=== PATIENT | female | born 1940 | race Caucasian/White ===

== ENCOUNTER 2024-11-23 09:35 | Emergency (ER) | payer MEDICARE, SELFPAY ==
[2024-11-23 09:37] VITALS: BP 120/72
--- NOTE | 2024-11-23 10:47 | ED.GENMED ---
History of Present Illness
General
Chief Complaint: Abdominal Symptoms
Source: patient, records and spouse
Exam Limitations: none
Time Seen by Provider: 11/23/24 10:22
Nursing documentation reviewed up to this point in time: agreed with
History of Present Illness
History of Present Illness:
84-year-old female with past medical history as noted significant for multiple myeloma, A-fib on Pradaxa who presents to the emergency department for evaluation of abdominal discomfort and constipation. Patient reports that 3 weeks ago she had a
fall�was apparently trying to pull open a welt drawer the kitchen and fell backwards. She did not feel she had any serious injuries and so she did not seek care after the fall. Since this accident she has been having abdominal wall pains that she
describes as muscle strain from pulling as well as occasional headache. She reports some soreness in her ribs. She called her primary doctor about pain and was apparently prescribed oxycodone which she took for a few days. This made her very
constipated and so she started using an old prescription for tramadol that was leftover from pelvic fracture a few years ago. She is continue to have abdominal discomfort and has had worsening constipation since then which prompted her to come to
the emergency room today. She says her last bowel movement was 2 days ago. She has had nausea since the accident and occasional vomiting. She reports occasional headache including yesterday denies headache today. Her does note that she
has been mildly confused/foggy recently. She denies any neck pain. 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 She denies any pain in her extremities or numbness or weakness in her extremities.
Past History
Past History
ED Past Medical History: Arrthythmia (AFib), CHF, CVA ([facility] 05/2018), HTN, Hypercholesterolemia and Other (multiple myeloma)
ED Past Surgical History: Appendectomy
Social History
Tobacco: Former smoker
Alcohol: Daily (Wine 1/2 glass white and 1/2 glass red)
Personal:
Living: with family
Employment: Retired
Family History
Family History: Other (reviewed and non-contributory)
Review of Systems
Review of Systems
All Other Systems: ROS reviewed and negative except as documented in HPI and ROS
Constitutional: Denies fever
Respiratory: Denies cough or trouble breathing
Cardiac: Reports chest pain (Sore ribs)
ABD/GI: Reports abdominal pain, nausea, vomiting and constipated
: Denies flank pain
Musculoskeletal: Reports back pain (Chronic); Denies joint pain or neck pain
Neurological: Reports headache; Denies dizzy
Phy Exam
Physical Exam
Physical Exam:
General: Awake, alert, oriented x3; no acute distress
Head: Normocephalic, atraumatic
Eyes: Conjunctiva normal, EOMI, pupils equal round reactive to light bilaterally, mild ptosis on the right which is chronic per patient
Throat: Airway intact, handling secretions
Neck: Trachea midline, no cervical spine tenderness
Back: No signs of trauma the back or flank; she has scoliosis; she has no midline tenderness of the thoracic or lumbar spine and no spinal step-offs
Lungs: Clear to auscultation bilaterally, no wheezing, rales, rhonchi
Heart: Regular rate and rhythm, no murmurs, gallops, or rubs appreciated; mild tenderness in the parasternal region but no crepitus or bruising to the chest wall
Abd: Soft, non distended, mild to moderate tenderness across the upper abdomen as well as in the left lower quadrant but no bruising or peritoneal signs
Neuro: Cranial nerves grossly intact, speech fluid
Skin: Patient has a bruise to the lateral right calf
Extremities: Patient has bruise to the lateral right calf but no significant tenderness in the area, moving both legs through full range of motion without pain; upper extremities are atraumatic with no pain on range of motion; no edema in
extremities, equal pulses in all extremities
Scores
Heart Failure Risk
Heart Failure Risk Score: Not Applicable
Heart Score for Chest Pain Patients
STEMI patient?: Not applicable
Withdrawal Assessment of Alcohol
Withdrawal Assessment Completed?: Not applicable
Course
Orders/Labs/Results
Orders:
Orders
11/23/24 10:30
CT Chest/abd/pel W Iv Cont Urgent
Comment: rib pain s/p fall on Pradaxa
Reason For Exam: abd, n/V, constipation
11/23/24 10:31
Electrocardiogram (*1) Urgent
Reason for Study: QTc Monitoring
EKG- Treatment ONCE
0.9% Sodium Chloride 500 ml [Nss] 500 ml IV BOLUS
Ondansetron Injectable [Zofran] 4 mg IV NOW STA
11/23/24 10:49
CT Cervical Spine W/o Iv Contr Urgent
Comment:
Reason For Exam: fall with head strike
CT Head W/o Iv Contrast Urgent
Comment:
Reason For Exam: fall with head strike on Pradaxa; confused, N/V
11/23/24 10:56
Complete Blood Count/With Diff Urgent
Comprehensive Metabolic Panel Urgent
TSH Reflex To Free T4 Urgent
11/23/24 12:51
Urinalysis Reflex To Culture Urgent
Date Specimen was Collected: 11/23/24
Time Specimen was Collected: 12:49
Urine Microscopic Reflex Cult Urgent
Abnormal Lab Results
11/23/24 11/23/24
10:56 12:51
RBC 2.94 L 10^6/uL
(4.20-5.40)
Hgb 10.0 L g/dL
(12.0-16.0)
Hct 30.7 L %
(37.0-47.0)
MCV 104.4 H fL
(81.0-99.0)
MCH 34.0 H pg
(27.0-31.0)
MCHC 32.6 L g/dL
(33.0-37.0)
Absolute Lymphs (auto) 0.8 L 10^3/uL
(1.2-3.4)
Lymphocytes % 13.8 L %
(20.5-51.1)
Creatinine 0.4 L mg/dL
(0.6-1.0)
Glucose 101 H mg/dl
(70-99)
Total Bilirubin 1.5 H mg/dl
(0.2-1.3)
Alkaline Phosphatase 190 H U/L
(38-126)
Urine Ketones 3+ A
(Negative)
Urine Bacteria (Reflex) Few A
(Negative)
Urine Albumin (Reflex) 2+ A
(Neg - Trace)
11/23/24 10:56
11/23/24 10:56
Vital Signs
Initial and Last Documented VS:
Initial Vital Signs
Temp Pulse Resp BP Pulse Ox
36.9 C 75 16 120/72 98
11/23/24 09:37 11/23/24 09:37 11/23/24 09:37 11/23/24 09:37 11/23/24 09:37
Last Documented Vital Signs
Temp Pulse Resp BP Pulse Ox
36.9 C 70 17 120/72 100
11/23/24 09:37 11/23/24 11:30 11/23/24 11:30 11/23/24 09:37 11/23/24 11:30
MDM/Problems Addressed
Differential Diagnosis Includes:
Abdominal discomfort/constipation: Bowel obstruction, constipation, diverticulitis
Abdominal discomfort/rib soreness/headache/vomiting since fall: Brain bleed (subdural, subarachnoid, etc), rib fracture, flank hemorrhage, abdominal wall strain, vertebral fracture
MDM/Problems Addressed:
84-year-old female presents to the ER for evaluation of constipation, abdominal pain in the setting of recent fall and pain medications as described above. Regarding constipation: Certainly having taken opioids recently high risk for constipation
and this certainly could account for some degree of abdominal discomfort as well. She does have history of abdominal surgeries and with vomiting I think she should be ruled out for obstruction with labs and CT abdomen and pelvis. Regarding her
fall�certainly with fall on blood thinners with reported fogginess, headaches and nausea/vomiting she needs CT head to rule out brain bleed; also check CT of the cervical spine. She says she has had some soreness in the ribs will check CT of the
chest in addition to aforementioned CT abdomen pelvis. Will check labs. Reassess after the above.
Labs reviewed: CBC shows very mild anemia in the setting of known multiple myeloma. CMP shows no clinically significant abnormalities. Urinalysis no infection. EKG shows A-fib which is known. CT head and cervical spine negative for any acute
pathology�old stroke shown on CT known to patient. CT of the chest/abdomen/pelvis showed acute pelvic fracture but no other acute abnormalities. Patient had a bowel movement here and said she feels better after this. We discussed her pelvic
fracture which I think accounts for much of her soreness after the fall. She has had pelvic fracture in the past. She wishes to go home does not feel she needs to stay in the hospital. We spoke about pain control for her pelvic fracture as well
as taking a bowel regimen should she be on any opioids. We spoke about follow-up plan and return precautions. All questions answered.
Chronic conditions affecting care:
A-fib on Pradaxa
*Radiology
Radiology exam reviewed: radiology read reviewed
*Pulse Oximetry
SaO2: 98
Oxygen Mode of Delivery: Room air
Patient hypoxic: no (98%)
*Critical Care Note
Total Time (30-74mins, 75-104mins- exclusive of procedures): Not Applicable
Data Reviewed
Review of Other/Old Records Reveals: Labs and Records
Source: patient and spouse
Patient Management
Escalation/DeEscalation of care consider admission/obs:
Considered admission but patient feels comfortable with discharge
ED Attending Note
-
Portions of this chart may have been created with voice recognition software.� Occasional wrong word or��sound alike� substitutions may have occurred due to the inherent limitations of voice recognition software.
Discharge Plan
Departure
Patient Disposition: Home (Routine Discharge)
Date of Disposition: 11/23/24
Time of Disposition: 13:39
Patient with high blood pressure during this ER visit?: No
Discharge Problem:
Constipation, Pelvic fracture
Instructions: Pelvic fracture, Constipation, Adult (DC)
Prescriptions:
No Action
furosemide 40 MG tablet
40 mg PO DAILY
potassium chloride 10 MEQ capsule, extended release
20 meq PO BID
calcium carbonate [Oyster Shell Calcium 500] 500 MG tablet
500 mg PO DAILY
dexamethasone 4 MG tablet
10 mg PO WE@0800
metoprolol tartrate 50 MG tablet
50 mg PO BID
folic acid 1 MG tablet
1 mg PO DAILY
cyclosporine [Restasis] 10 DROPS dropperette
1 drp BOTH EYES BID
lenalidomide [Revlimid] 5 MG capsule
5 mg PO .SEE COMMENT
Patient Comments:
10/06/18 ss; pt takes daily for 21 days then off for 7 days. Pt took last dose on Monday 10/02 and is due to resume Monday 10/09.
rivaroxaban [Xarelto] 20 MG tablet
20 mg PO QPM
atorvastatin 80 MG tablet
80 mg PO QPM Qty: 30 0RF
tramadol 50 MG tablet
50 mg PO Q6HPRN PRN (Reason: Pain) Qty: 10 0RF
Referrals:
Yesica Canseco MD [Family Provider, Family Practice] - Call in 1-3 days for appt
Activity Restrictions/Additional Instructions:
Thank you for visiting the Emergency Department at [facility].
1. Please schedule a follow up appointment as directed. Call first thing tomorrow morning to make an appointment.
2. If indicated, please take your medications as instructed and indicated on discharge paperwork.
3. If any of your symptoms do not improve, or persist, or become more severe within 6-12 hours, please return to the emergency department for further care.
4. Please return to the emergency department if you develop a headache, neck pain/stiffness, fever greater than 100.4F, chest pain, shortness of breath, persistent nausea, vomiting, slurred speech, difficulty walking, numbness/tingling, weakness,
signs of infection or any other symptoms that are worrisome to you.
Please call [phone] if you have any questions.
Interventions
Interventions:
*Risk Screen - Suicide Last Done: 11/23/24 09:38
*General Assessment Last Done: 11/23/24 11:51
*Neglect/Abuse Screening Last Done: 11/23/24 09:38
*ED COVID-19 Vaccine History Last Done: 11/23/24 11:51
[facility]-Lmksuy-Olbnxqqnfw Assessment Last Done: 11/23/24 11:02
Discharge Date and Time
Print Language: BENGALI
[2024-11-23] MEDS: NSS 500 IV (10:54)
[2024-11-23] MEDS: ZOFRAN 4 MG IV (10:55)
[2024-11-23 11:01] LABS: Hematocrit 30.7 % (37.0-47.0); Hemoglobin 10.0 g/dL (12.0-16.0); Mean Corp Hgb Conc. 32.6 g/dL (33.0-37.0); Mean Corpuscular Volume 104.4 fL (81.0-99.0); Nucleated Red Blood Cells % 0 %; Platelet Count 364 10^3/uL (130-400); Red Cell Dist. Width 13.9 % (11.5-14.5)
[2024-11-23 11:24] LABS: ALT (SGPT) 11 U/L (0-35); AST (SGOT) 26 U/L (14-36); Albumin 3.6 g/dl (3.5-5.0); Alkaline Phosphatase 190 U/L (38-126); Blood Urea Nitrogen 8 mg/dl (7-17); Calcium 9.0 mg/dl (8.4-10.2); Carbon Dioxide 25 mmol/L (22-30); Chloride 102 mmol/L (98-107); Glucose 101 mg/dl (70-99); Potassium 3.8 mmol/L (3.5-5.1); Sodium 135 mmol/L (135-145); Total Protein 6.3 g/dl (6.3-8.2); eGFR > 60.00
[2024-11-23 13:02] LABS: Urine Character Clear (Clear)
[2024-11-23 13:26] LABS: Urine Red Blood Cell 0-2 /HPF (0-2); Urine Squamous Cell 0-2 /LPF (Few); Urine White Cell 0-2 /HPF (0-5)
== END 2024-11-23 17:31 | disposition home or self-care (01) ==
LOC: EMR 09:35
PROVIDERS: EMERGENCY PHYSICIAN Emergency Medicine; FAMILY PHYSICIAN Family Medicine
DX: S32.9XXA Fracture of unspecified parts of lumbosacral spine and pelvis, initial encounter for closed fracture (principal); W18.39XA Other fall on same level, initial encounter; K59.00 Constipation, unspecified; C90.00 Multiple myeloma not having achieved remission; I48.91 Unspecified atrial fibrillation; Z87.891 Personal history of nicotine dependence; Z79.01 Long term (current) use of anticoagulants
CPT/HCPCS: 99285; 96374; 70450; 71260; 72125; 74177; 80053; 81003; 81015; 84443; 85025; 93005; Q9967